=== PATIENT | female | born 1990 | race African-American/Black ===

== ENCOUNTER 2016-06-25 18:18 | Emergency (ER) | payer SELFPAY | END 2016-06-25 18:45 | disposition left against medical advice (07) | LOC: ER 18:18 | DX: Z53.9 Procedure and treatment not carried out, unspecified reason (principal) ==

== ENCOUNTER 2019-08-08 18:46 | Emergency (ER) | payer SELFPAY ==
[2019-08-08] MEDS ORDERED: ONDANSETRON HCL INJ/PF 4 MG/2 ML SDV IV ONE (19:05)
[2019-08-08] MEDS ORDERED: NORMAL SALINE 1000 ML 1,000 ML IV ONE (19:05)
[2019-08-08] MEDS ORDERED: MORPHINE SULFATE 10 MG/ML INJ IV ONE (19:08)
[2019-08-08 19:50] LABS: APPEARANCE,URINE CLOUDY; BILIRUBIN,URINE MODERATE (NEGATIVE); COLOR,URINE AMBER; GLUCOSE, URINE NEGATIVE (NEGATIVE); KETONES,URINE 80 mg/dL (NEGATIVE); LEUKOCYTE ESTERASE,URINE NEGATIVE (NEGATIVE); NITRITE,URINE NEGATIVE (NEGATIVE); PROTEIN,URINE >=500 mg/dL (NEGATIVE); URINE SPECIFIC GRAVITY 1.032
[2019-08-08 19:54] LABS: HEMATOCRIT 49.2 % (36.0-47.0); HEMOGLOBIN 17.4 g/dL (12.0-15.5); MEAN CORPUSCULAR HGB CONC 35.3 g/dL (32.0-36.0); MEAN CORPUSCULAR VOLUME 93 fl (80-97); PLATELET COUNT 202 10^3/uL (150-450); RED BLOOD COUNT 5.26 10^6/uL (3.72-5.28); RED CELL DISTRIBUTION WIDTH 14.3 % (11.5-14.0); WHITE BLOOD COUNT 14.2 10^3/uL (4.0-10.5)
--- NOTE | 2019-08-08 19:57 | ER Document Report ---
ED General - General Chief Complaint: Shortness Of Breath Stated Complaint: SHORTNESS OF BREATH Time Seen by Provider: 08/08/19 19:05 Primary Care Provider: [facility] [Provider Group] - Follow up in 1 week [facility] [Provider Group] - Follow up in 1 week Notes: Patient is a 28-year-old female who presents the emergency department with a chief complaint of mid upper abdominal pain and shortness of breath. Patient states that her symptoms started yesterday. She has been vomiting since then. Patient is an everyday drinker. She states that she normally drinks 2 12 packs of Budweiser daily between herself and her significant other. She also reports shortness of breath. Patient denies recent travel. Denies any contact with any patients with COVID 19. Patient admits to marijuana use. Denies any past medical history. She does not take any medications on a daily basis. Patient was brought in by EMS and patient had shortness of breath on exertion. TRAVEL OUTSIDE OF THE [place] IN LAST 30 DAYS: No - Related Data Allergies/Adverse Reactions: No Known Allergies Allergy (Verified 02/21/16 14:45) Past Medical History - Social History Smoking Status: Current Every Day Smoker Frequency of alcohol use: Heavy Drug Abuse: None Family History: Other - Family history of breast CA, Alzheimer's Disease, DM Patient has suicidal ideation: No Patient has homicidal ideation: No Psychiatric Medical History: Reports: Hx Bipolar Disorder - Immunizations Immunizations up to date: Yes Hx Diphtheria, Pertussis, Tetanus Vaccination: Yes Review of Systems - Review of Systems Notes: REVIEW OF SYSTEMS: CONSTITUTIONAL : Denies recent illness. Denies recent unintentional weight loss. Denies fever, chills, or sweats. EENT: Denies eye, ear, throat, or mouth pain, discharge, or symptoms. Denies nasal or sinus congestion. CARDIOVASCULAR: Denies chest pain. RESPIRATORY: See HPI. GASTROINTESTINAL: See HPI. GENITOURINARY: Denies difficulty urinating, burning, blood in urine, urgency or frequency. MUSCULOSKELETAL: Denies neck and back pain. Denies joint pain or swelling. SKIN: Denies rash, itchiness, or lesions HEMATOLOGIC : Denies easy bruising or bleeding. LYMPHATIC: Denies swollen, painful, enlarged glands. NEUROLOGICAL: Denies no numbness or tingling denies weakness. Denies headache. Denies altered mental status. Denies alteration in speech. PSYCHIATRIC: Denies stress, anxiety, alteration in sleep patterns, or depression. All other systems reviewed and negative. Physical Exam - Vital signs Vitals: Temp Pulse Resp BP Pulse Ox 99.1 F 110 H 22 H 154/99 H 98 08/08/19 18:46 08/08/19 18:46 08/08/19 18:46 08/08/19 18:46 08/08/19 18:46 - Notes Notes: PHYSICAL EXAMINATION: GENERAL: Appears well, healthy, well-nourished, no acute distress. HEAD: Normocephalic, atraumatic. EYES: PERRL, conjunctiva normal, all extraocular movements intact, sclera nonicteric ENT: Moist mucous membranes. NECK: Supple, no noticeable swelling, redness, rash. Normal range of motion. LUNGS: Equal breath sounds bilaterally and clear to auscultation. No wheezes rales or rhonchi. CARDIOVASCULAR: S1-S2, regular rate, regular rhythm. Radial pulses 2+, normal. ABDOMEN: Normoactive bowel sounds. Soft, tender mid to right upper abdomen. Guarding noted to that area. EXTREMITIES: Normal strength and range of motion, no pitting or edema. No cyanosis. NEUROLOGICAL: Moves all extremities upon command. Strength 5/5 in all extremities. PSYCH: Normal mood, normal affect. SKIN: Warm, dry. No rash, lesions, ulcerations noted. Normal skin turgor. Course - Re-evaluation Re-evalutation: 08/08/19 20:31 Hematology shows a leukocytosis of 14,200. Patient's hemoglobin is high, most likely due to dehydration. Patient is hyponatremic. She received a liter of IV fluids to help with this. Potassium is 3.0. 40 M EQ's of potassium ordered. AST and ALT are also elevated, most likely due to fatty colic fatty liver disease. Lipase is normal. hCG is negative. Patient has protein in her urine, along with ketones, most likely due to dehydration. Patient's urine toxicology screen is positive for marijuana, which she admits to this. Due to her lipase not being elevated, pancreatitis has been ruled out. Patient will be sent for a right upper quadrant ultrasound to evaluate possible cholecystitis. Patient's chest x-ray is normal. I suspect the patient was short of breath due to her vomiting. I have a very low suspicion for COVID 19. 08/08/19 22:34 Patient's right upper quadrant ultrasound is negative for any acute findings. Patient states that she feels better after receiving Pepcid and Carafate. Patient will be started on Pepcid and Carafate for gastritis. I have very low suspicion for appendicitis, mesenteric ischemia, or any life-threatening etiology at this time. Patient will follow-up with [facility] or [facility] in regards to this visit. As far as her alcohol abuse goes, I educated the patient on cutting back on her drinking slowly, so she does not go through alcohol withdrawals. I also discussed that she is able to visit [facility] center to see if she can get help with her alcohol abuse. - Vital Signs Vital signs: Temp Pulse Resp BP Pulse Ox 99.0 F 90 18 155/101 H 99 08/08/19 22:11 08/08/19 22:11 08/08/19 22:11 08/08/19 22:11 08/08/19 22:11 - Laboratory Result Diagrams: 08/08/19 19:31 08/08/19 19:31 Laboratory results interpreted by me: 08/08/19 08/08/19 08/08/19 19:31 19:31 19:31 WBC 14.2 H Hgb 17.4 H Hct 49.2 H RDW 14.3 H Seg Neuts % (Manual) 86 H Lymphocytes % (Manual) 4 L Abs Neuts (Manual) 12.6 H Sodium 131.7 L Potassium 3.0 L* Chloride 79 L Carbon Dioxide 36 H Glucose 116 H Calcium 10.5 H AST 62 H ALT 68 H Total Protein 9.4 H Albumin 5.3 H Urine Protein >=500 H Urine Ketones 80 H Urine Bilirubin MODERATE H Urine Urobilinogen 4.0 H Discharge - Discharge Clinical Impression: Dehydration, Hypokalemia, Alcohol abuse, Marijuana use Nausea and vomiting Qualifiers: Vomiting type: unspecified Vomiting Intractability: non-intractable Qualified Code(s): R11.2 - Nausea with vomiting, unspecified Condition: Stable Disposition: HOME, SELF-CARE Instructions: Antinausea Medication ([facility]), Intravenous (IV) Fluids ([facility]), Reglan ([facility]), Vomiting ([facility]) Additional Instructions: You were seen today in the emergency department for nausea and vomiting. You were severely dehydrated. You received IV fluids here in the emergency department. Please use the anti-nausea medication (Reglan and Zofran) to help you with the nausea and vomiting. You can alternate taking the medications to help you with your symptoms. You also have gastritis, which is inflammation of your stomach lining. Please take Pepcid and Carafate as directed. Please cut back on drinking and marijuana use as we discussed. Follow-up with one of the clinics below regards to this visit. If you are serious about quitting drinking, please follow up with [facility]. [facility]. [address] [place] [address] . Prescriptions: Sucralfate [Carafate 1 gm Tablet] 1 gm PO ACHS #90 tablet Famotidine [Pepcid 20 mg Tablet] 20 mg PO BID #60 tablet Metoclopramide HCl [Reglan 10 mg Tablet] 1 - 2 tab PO ASDIR PRN #25 tablet PRN Reason: Ondansetron [Zofran Odt 4 mg Tablet] 1 - 2 tab PO Q4H PRN #30 tab.rapdis PRN Reason: For Nausea/Vomiting Forms: Return to Work Referrals: [facility] [Provider Group] - Follow up in 1 week [facility] [Provider Group] - Follow up in 1 week
[2019-08-08 20:01] LABS: URINE AMPHETAMINES SCREEN NEGATIVE; URINE BARBITURATES SCREEN NEGATIVE; URINE BENZODIAZEPINES SCREEN NEGATIVE; URINE COCAINE SCREEN NEGATIVE; URINE METHADONE SCREEN NEGATIVE; URINE PHENCYCLIDINE SCREEN NEGATIVE
[2019-08-08 20:02] LABS: URINE MARIJUANA (THC) SCREEN UNCONFIRMED POSITIVE
[2019-08-08 20:08] LABS: ABSOLUTE LYMPHOCYTES# (MANUAL) 0.7 10^3/uL (0.5-4.7); ABSOLUTE MONOCYTES # (MANUAL) 0.9 10^3/uL (0.1-1.4); BAND NEUTROPHILS % (MANUAL) 3 % (3-5); BASOPHILS % (MANUAL) 0 % (0-2); EOSINOPHILS % (MANUAL) 0 % (0-6); LYMPHOCYTES % (MANUAL) 4 % (13-45); MONOCYTES % (MANUAL) 6 % (3-13); SEGMENTED NEUTROPHILS % (MAN) 86 % (42-78); TOTAL CELLS COUNTED 100
[2019-08-08 20:10] LABS: ALBUMIN 5.3 g/dL (3.5-5.0); ALKALINE PHOSPHATASE 118 U/L (38-126); ANION GAP 17 (5-19); ANISOCYTOSIS SLIGHT; ASPARTATE AMINO TRANSFERASE 62 U/L (14-36); BILIRUBIN,DIRECT 0.2 mg/dL (0.0-0.4); BILIRUBIN,TOTAL 0.9 mg/dL (0.2-1.3); BLOOD UREA NITROGEN 18 mg/dL (7-20); CALCIUM 10.5 mg/dL (8.4-10.2); CARBON DIOXIDE 36 mmol/L (22-30); CHLORIDE 79 mmol/L (98-107); GLUCOSE 116 mg/dL (75-110); PLATELET COMMENT ADEQUATE; POIKILOCYTOSIS SLIGHT; TARGET CELLS SLIGHT; TOTAL PROTEIN 9.4 g/dL (6.3-8.2)
[2019-08-08] MEDS ORDERED: POTASSI CL 20 MEQ/50 ML RIDER 20 MEQ/50 ML RTUPB IV SCH (20:15)
[2019-08-08] MEDS ORDERED: SUCRALFATE 1 GM TABLET PO ONE (20:22)
[2019-08-08] MEDS ORDERED: FAMOTIDINE 20 MG TABLET PO ONE (20:22)
--- NOTE | 2019-08-08 20:28 | RADIOLOGY REPORT (SQ) ---
EXAM DESCRIPTION: AP portable chest radiograph CLINICAL HISTORY: 28 years Female, shortness of breath COMPARISON: Two views of the chest February 21, 2016 FINDINGS: Lungs: Lungs are clear. No pneumonia or edema. No pneumothorax or pleural effusion. Mediastinum: Cardiac and mediastinal silhouette are normal. Bones: Osseous structures are normal. IMPRESSION: No acute process. No significant interval change.
[2019-08-08] MEDS ORDERED: POTASSIUM CHLORIDE 20 MEQ PACKET PO ONE (21:37)
--- NOTE | 2019-08-08 22:18 | RADIOLOGY REPORT (SQ) ---
US ABDOMEN LIMITED HISTORY: RUQ abdominal pain COMPARISON: none FINDINGS: Transabdominal sonographic images through the right upper quadrant were performed with grayscale, color and Doppler evaluation. The liver is normal in appearance and measures 14.5 cm in length. Imaged hepatic and portal veins are patent with normal directional flow. No intrahepatic or extrahepatic biliary ductal dilatation. 5.0-mm common hepatic duct. The gallbladder is adequately distended. No gallstone, gallbladder wall thickening or pericholecystic fluid. Negative sonographic Aquino's sign. Unremarkable pancreas. The pancreatic tail is obscured by overlying bowel gas. The right kidney measures 10.1 cm in length. No shadowing calculi or right-sided hydronephrosis. No free fluid in Morison's pouch. No abdominal aortic aneurysm. IMPRESSION: No cholelithiasis, evidence of acute cholecystitis, or evidence of biliary obstruction.
[2019-08-08] MEDS ORDERED: ONDANSETRON ODT 4 MG TAB (6 TAB/ER DISP) PO PRN (22:37)
[2019-08-08 23:00] VITALS: BP 149/90
== END 2019-08-08 23:00 | disposition home or self-care (01) ==
LOC: ER 18:46
DX: R11.2 Nausea with vomiting, unspecified (principal); E86.0 Dehydration; E87.6 Hypokalemia; R06.02 Shortness of breath; F10.10 Alcohol abuse, uncomplicated; R10.13 Epigastric pain; R10.811 Right upper quadrant abdominal tenderness; R74.0 Nonspecific elevation of levels of transaminase and lactic acid dehydrogenase [LDH]; F17.200 Nicotine dependence, unspecified, uncomplicated
CPT/HCPCS: 99284; 96361; 96375; 96365; 96366; 36415; 83690; 84703; 85025; 80053; 81001; 80307; 71045; 76705; J2270; J2405; J7030; J3490; J3480